=== PATIENT | female | born 1965 | race Caucasian/White ===

== ENCOUNTER → 2020-03-14 | Outpatient (CLI) | payer OTHER ==
[~2020-03-14] MED LIST: BUSP10TA PO; CITA10TA8 PO; LISI-170 PO; MELA3TAB31 PO; OMEP-110 PO
== END | disposition home or self-care (01) ==
LOC: CVU 09:55
PROVIDERS: ATTEND Family Medicine
DX: I10 Essential (primary) hypertension (principal)
CPT/HCPCS: 93308; 93321; 93325